=== PATIENT | female | born 1980 | race Caucasian/White ===

== ENCOUNTER 2020-07-17 12:10 | Emergency (ER) | payer OTHER ==
[2020-07-17 13:38] LABS: HEMOGLOBIN 16.2 gm/dl (12.3-15.3); RED BLOOD COUNT 4.69 M/UL (4.00-5.10); WHITE BLOOD COUNT 7.2 K/UL (4.5-11.0)
[2020-07-17 13:57] LABS: BUN/CREATININE RATIO 16 (0-10)
[2020-07-17] MEDS ORDERED: BENTYL 20MG TAB20 MG PO (16:52)
[2020-07-17] MEDS ORDERED: ZOFRAN4 MG PO (16:52)
== END 2020-07-17 17:19 | disposition home or self-care (01) ==
LOC: ER1 12:10
PROVIDERS: Emergency Medicine
DX: R10.84 Generalized abdominal pain (principal); R11.2 Nausea with vomiting, unspecified; R19.7 Diarrhea, unspecified; F17.210 Nicotine dependence, cigarettes, uncomplicated
CPT/HCPCS: 80053; 81001; 83605; 83690; 84703; 85025; 99284; Q9967

== ENCOUNTER → 2020-08-16 | Outpatient (CLI) | payer OTHER ==
[~2020-08-16] MED LIST: BENTYL 20MG TAB20 MG PO; ZOFRAN4 MG PO
== END ==
LOC: RAD 12:22
DX: R22.2 Localized swelling, mass and lump, trunk (principal)
CPT/HCPCS: 71045

== ENCOUNTER 2021-01-09 00:31 | Emergency (ER) | payer OTHER ==
[2021-01-09 01:11] LABS: HEMOGLOBIN 14.5 gm/dl (12.3-15.3); RED BLOOD COUNT 4.23 M/UL (4.00-5.10); WHITE BLOOD COUNT 6.2 K/UL (4.5-11.0)
[2021-01-09 01:31] LABS: BUN/CREATININE RATIO 18 (0-10)
== END 2021-01-09 03:08 | disposition home or self-care (01) ==
LOC: ER1 00:31
PROVIDERS: Family Medicine
DX: R53.83 Other fatigue (principal); I10 Essential (primary) hypertension; R53.81 Other malaise
CPT/HCPCS: 71046; 80053; 82550; 82553; 83874; 84484; 85025; 93005; 99284